=== PATIENT | female | born 1955 | race Caucasian/White ===

== ENCOUNTER → 2021-08-14 | Outpatient (CLI) | payer BC | LOC: LABNPT 06:45 | PROVIDERS: ATTEND Orthopaedic Surgery | DX: Z01.812 Encounter for preprocedural laboratory examination (principal) ==

== ENCOUNTER → 2021-08-17 | Outpatient (CLI) | payer MEDICARE, OTHER | LOC: LABNPT 08:25 | PROVIDERS: ATTEND Orthopaedic Surgery | DX: Z01.812 Encounter for preprocedural laboratory examination (principal); Z20.822 Contact with and (suspected) exposure to COVID-19 | CPT/HCPCS: 87636 ==